=== PATIENT | female | born 1985 | race American Indian/Alaskan Native ===

== ENCOUNTER 2020-05-27 14:04 | Emergency (ER) | payer MEDICAID ==
[2020-05-27 15:47] LABS: Basophils # (Auto) 0.1 K/mm3 (0.0-0.1); Basophils % (Auto) 0.9 % (0.0-1.8); Eosinophils % (Auto) 0.5 % (0.0-4.3); Hematocrit 31.3 % (30.3-42.9); Hemoglobin 9.7 gm/dl (10.1-14.3); Lymphocytes % (Auto) 34.8 % (13.4-35.0); Mean Corpuscular HGB Conc 31 % (30-34); Mean Corpuscular Volume 71 fl (79-97); Monocytes # (Auto) 0.5 K/mm3 (0.0-0.8); Platelet Count 320 K/mm3 (140-440); Red Blood Count 4.42 M/mm3 (3.65-5.03); Red Cell Distribution Width 19.1 % (13.2-15.2)
--- NOTE | 2020-05-27 16:06 | Event Note ---
ED Screening Note ED Screening Note: vaginal bleeding began today no heavy bleeding one small blood clot 6 weeks states she goes to [facility] no abd pain no fever no v/d no dysuria no pMHx no allergies to meds LNMP: 04/14/2020 /P:5/A:1 had a miscarriage on March 18 This initial assessment/diagnostic orders/clinical plan/treatment(s) is/are subject to change based on patients health status, clinical progression and re- assessment by fellow clinical providers in the ED. Further treatment and workup at subsequent clinical providers discretion. Patient/guardian urged not to elope from the ED as their condition may be serious if not clinically assessed and managed. Initial orders include: labs, UA, US
[2020-05-27 16:50] LABS: BUN/Creatinine Ratio 10; Blood Urea Nitrogen 6 mg/dL (7-17); Calcium 9.2 mg/dL (8.4-10.2); Hemolysis Index 4
--- NOTE | 2020-05-27 18:03 | Ultrasound Report ---
ULTRASOUND OBSTETRIC INDICATION / CLINICAL INFORMATION: , vaginal bleeding. TECHNIQUE: Transabdominal and Transvaginal. COMPARISON: None available. FINDINGS: GESTATIONAL SAC: Well-defined oval shape and intrauterine in location. Small 1.2 x 0.6 x 0.6 cm subch orionic hemorrhage/implantation bleed. YOLK SAC: No significant abnormality. EMBRYO/FETUS: Not visualized. - Heart Rate, beats per minute (if present) = not yet visualized ADNEXA: Both ovaries within normal limits FREE FLUID: None. ADDITIONAL FINDINGS: None. IMPRESSION: 1. Early IUP with gestational sac and yolk sac noted with small implantation bleed. Recommend short-t erm follow-up ultrasound to confirm viability since embryo and heartbeat not visualized on reina y's study. Signer Name: Vivek Green MD Signed: 05/27/2020 5:59 PM Workstation Name: [id number]
--- NOTE | 2020-05-27 19:13 | Emergency Department Report ---
ED HPI - General Chief complaint: Vaginal Bleeding Stated complaint: 6 WEEKS VAGINAL BLEEDING Time Seen by Provider: 05/27/20 16:04 Source: patient Mode of arrival: Ambulatory Limitations: No Limitations - History of Present Illness Initial comments: pt is a 34 yo female who presents to the ED with c/o vaginal bleeding began today no heavy bleeding one small blood clot 6 weeks states she goes to [facility] for [facility] care no abd pain no fever no v/d no dysuria no pMHx no allergies to meds LNMP: 04/14/2020 /P:5/A:1 had a miscarriage on March 18 - Related Data Allergies Allergy/AdvReac Type Severity Reaction Status Date / Time No Known Allergies Allergy Unverified 05/27/20 14:56 ED Review of Systems ROS: Stated complaint: 6 WEEKS VAGINAL BLEEDING Other details as noted in HPI ED Past Medical Hx - Past Medical History Previous Medical History?: No - Surgical History Past Surgical History?: No ED Physical Exam - General Limitations: No Limitations ED Course Vital Signs 05/27/20 05/27/20 05/27/20 14:58 19:30 20:26 Temperature 98.2 F 98.5 F Pulse Rate 74 82 Respiratory 14 18 18 Rate Blood Pressure 132/75 Blood Pressure 129/75 [Left] O2 Sat by Pulse 100 100 100 Oximetry ED Medical Decision Making - Lab Data Result diagrams: 05/27/20 15:30 05/27/20 16:12 Lab Results 05/27/20 05/27/20 05/27/20 Range/Units 15:30 15:30 15:30 WBC 5.7 (4.5-11.0) K/mm3 RBC 4.42 (3.65-5.03) M/mm3 Hgb 9.7 L (10.1-14.3) gm/dl Hct 31.3 (30.3-42.9) % MCV 71 L (79-97) fl MCH 22 L (28-32) pg MCHC 31 (30-34) % RDW 19.1 H (13.2-15.2) % Plt Count 320 (140-440) K/mm3 Lymph % (Auto) 34.8 (13.4-35.0) % [place] % (Auto) 9.0 H (0.0-7.3) % Eos % (Auto) 0.5 (0.0-4.3) % Baso % (Auto) 0.9 (0.0-1.8) % Lymph # (Auto) 2.0 (1.2-5.4) K/mm3 [place] # (Auto) 0.5 (0.0-0.8) K/mm3 Eos # (Auto) 0.0 (0.0-0.4) K/mm3 Baso # (Auto) 0.1 (0.0-0.1) K/mm3 Seg Neutrophils % 54.8 (40.0-70.0) % Seg Neutrophils # 3.1 (1.8-7.7) K/mm3 Sodium (137-145) mmol/L Potassium (3.6-5.0) mmol/L Chloride (98-107) mmol/L Carbon Dioxide (22-30) mmol/L Anion Gap mmol/L BUN (7-17) mg/dL Creatinine (0.6-1.2) mg/dL Estimated GFR ml/min BUN/Creatinine Ratio % Glucose (65-100) mg/dL Calcium (8.4-10.2) mg/dL HCG, Qual Positive (Negative) HCG, Quant (0-4) mIU/mL Urine Color (Yellow) Urine Turbidity (Clear) Urine pH (5.0-7.0) Ur Specific [place] (1.003-1.030) Urine Protein (Negative) mg/dL Urine Glucose (UA) (Negative) mg/dL Urine Ketones (Negative) mg/dL Urine Blood (Negative) Urine Nitrite (Negative) Urine Bilirubin (Negative) Urine Urobilinogen (<2.0) mg/dL Ur Leukocyte Esterase (Negative) Urine WBC (Auto) (0.0-6.0) /HPF Urine RBC (Auto) (0.0-6.0) /HPF U Epithel Cells (Auto) (0-13.0) /HPF Urine Mucus /HPF Blood Type A POSITIVE 05/27/20 05/27/20 05/27/20 Range/Units 16:12 16:12 19:16 WBC (4.5-11.0) K/mm3 RBC (3.65-5.03) M/mm3 Hgb (10.1-14.3) gm/dl Hct (30.3-42.9) % MCV (79-97) fl MCH (28-32) pg MCHC (30-34) % RDW (13.2-15.2) % Plt Count (140-440) K/mm3 Lymph % (Auto) (13.4-35.0) % [place] % (Auto) (0.0-7.3) % Eos % (Auto) (0.0-4.3) % Baso % (Auto) (0.0-1.8) % Lymph # (Auto) (1.2-5.4) K/mm3 [place] # (Auto) (0.0-0.8) K/mm3 Eos # (Auto) (0.0-0.4) K/mm3 Baso # (Auto) (0.0-0.1) K/mm3 Seg Neutrophils % (40.0-70.0) % Seg Neutrophils # (1.8-7.7) K/mm3 Sodium 135 L (137-145) mmol/L Potassium 3.7 (3.6-5.0) mmol/L Chloride 101.1 (98-107) mmol/L Carbon Dioxide 26 (22-30) mmol/L Anion Gap 12 mmol/L BUN 6 L (7-17) mg/dL Creatinine 0.6 (0.6-1.2) mg/dL Estimated GFR > 60 ml/min BUN/Creatinine Ratio 10 % Glucose 95 (65-100) mg/dL Calcium 9.2 (8.4-10.2) mg/dL HCG, Qual (Negative) HCG, Quant 9507 H (0-4) mIU/mL Urine Color Yellow (Yellow) Urine Turbidity Hazy (Clear) Urine pH 6.0 (5.0-7.0) Ur Specific [place] 1.008 (1.003-1.030) Urine Protein <15 mg/dl (Negative) mg/dL Urine Glucose (UA) Neg (Negative) mg/dL Urine Ketones Neg (Negative) mg/dL Urine Blood Lg (Negative) Urine Nitrite Neg (Negative) Urine Bilirubin Neg (Negative) Urine Urobilinogen < 2.0 (<2.0) mg/dL Ur Leukocyte Esterase Neg (Negative) Urine WBC (Auto) 1.0 (0.0-6.0) /HPF Urine RBC (Auto) 1.0 (0.0-6.0) /HPF U Epithel Cells (Auto) 12.0 (0-13.0) /HPF Urine Mucus Few /HPF Blood Type - Radiology Data Radiology results: report reviewed Ordering Physician: EMMA JOHNSTON Date of Service: 05/27/20 Procedure(s): US OB transvaginal Accession Number(s): [id number] cc: EMMA JOHNSTON ULTRASOUND OBSTETRIC INDICATION / CLINICAL INFORMATION: , vaginal bleeding. TECHNIQUE: Transabdominal and Transvaginal. COMPARISON: None available. FINDINGS: GESTATIONAL SAC: Well-defined oval shape and intrauterine in location. Small 1.2 x 0.6 x 0.6 cm subchorionic hemorrhage/implantation bleed. YOLK SAC: No significant abnormality. EMBRYO/FETUS: Not visualized. - Heart Rate, beats per minute (if present) = not yet visualized ADNEXA: Both ovaries within normal limits FREE FLUID: None. ADDITIONAL FINDINGS: None. IMPRESSION: 1. Early IUP with gestational sac and yolk sac noted with small implantation bleed. Recommend short-term follow-up ultrasound to confirm viability since embryo and heartbeat not visualized on today's study. Signer Name: Vivek Green MD Signed: 05/27/2020 5:59 PM Workstation Name: [id number] Transcribed By: TL Dictated By: Vivek Green MD Electronically Authenticated By: Vivek Green MD Signed Date/Time: 05/27/201758 DD/ 55 TD/TT: - Medical Decision Making pt is a 34 yo female who presents to the ED with c/o vaginal bleeding began today no heavy bleeding one small blood clot 6 weeks states she goes to [facility] for [facility] care no abd pain no fever no v/d no dysuria no pMHx no allergies to meds LNMP: 04/14/2020 /P:5/A:1 had a miscarriage on March 18 vss. No abdominal tenderness on exam, no guarding, rebound, rigidity, normal bowel sounds, no peritoneal signs. Labs are stable. hCG quant is 9507. Patient is Rh+. UA is with small amount of blood otherwise normal. OB US: 1. Early IUP with gestational sac and yolk sac noted with small implantation bleed. Recommend short-term follow-up ultrasound to confirm viability since embryo and heartbeat not visualized on today's study. Discussed all results with patient and answered questions. Discussed threatened miscarriage and subchorionic hemorrhage. Discussed the importance of close [facility] follow-up with patient. Advised patient May take Tylenol as needed for discomfort. Increase your water intake. Please take vitamin [id number]. Follow-up with [facility]. You need to have a repeat hCG quant in 2 days. Today 05/27/2020 your hCG quant is 9507. Return to emergency room for new or worsening symptoms. Critical care attestation.: If time is entered above; I have spent that time in minutes in the direct care of this critically ill patient, excluding procedure time. ED Disposition Clinical Impression: Threatened miscarriage Subchorionic hemorrhage Qualifiers: Fetus number: single or unspecified fetus Trimester: first trimester Qualified Code(s): O41.8X10 - Other specified disorders of amniotic fluid and membranes, first trimester, not applicable or unspecified Disposition: DC-01 TO HOME OR SELFCARE Is pt being admited?: No Does the pt Need Aspirin: No Condition: Stable Instructions: Threatened Miscarriage, Subchorionic Hematoma Additional Instructions: May take Tylenol as needed for discomfort. Increase your water intake. Please take vitamin [id number]. Follow-up with [facility]. You need to have a repeat hCG quant in 2 days. Today 05/27/2020 your hCG quant is 9507. Return to emergency room for new or worsening symptoms. 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
[2020-05-27 19:47] LABS: Bilirubin,Urine NEG (Negative); Blood,Urine LG (Negative); Color,Urine Yellow (Yellow); Mucus,Urine FEW /HPF; Protein,Urine <15 mg/dL mg/dL (Negative); Urobilinogen,Urine < 2.0 mg/dL (<2.0)
[2020-05-27 20:29] VITALS: BP 129/75
== END 2020-05-27 20:26 | disposition home or self-care (01) ==
LOC: ED 14:04
DX: O41.8X10 Other specified disorders of amniotic fluid and membranes, first trimester, not applicable or unspecified (principal); O20.0 Threatened abortion; Z79.899 Other long term (current) drug therapy; Z3A.01 Less than 8 weeks gestation of pregnancy; X58.XXXA Exposure to other specified factors, initial encounter; Y93.89 Activity, other specified; Y92.89 Other specified places as the place of occurrence of the external cause; Y99.8 Other external cause status
CPT/HCPCS: 36415; 76801; 76817; 80048; 81001; 84702; 84703; 85025; 86900; 86901; 99283

== ENCOUNTER 2020-05-30 08:55 | Emergency (ER) | payer MEDICAID ==
[2020-05-30 09:27] VITALS: BP 138/78
--- NOTE | 2020-05-30 11:23 | Emergency Department Report ---
ED General Adult HPI - General Chief complaint: Recheck/Abnormal Lab/Rx Stated complaint: HCG LEVELS Time Seen by Provider: 05/30/20 10:52 Source: patient Mode of arrival: Ambulatory Limitations: No Limitations - History of Present Illness Initial comments: 34-year-old -[place] female patient presents for a repeat beta-hCG and ultrasound today patient was seen here in the ED 05/27/2020 for vaginal bleeding during . She was noted to have an IUP with a small implantation bleed on her ultrasound. Beta-hCG level was 9500 at that time. She denies any current vaginal bleeding or pain or urinary symptoms. Patient states she is feeling well. - Related Data Allergies Allergy/AdvReac Type Severity Reaction Status Date / Time No Known Allergies Allergy Unverified 05/27/20 14:56 ED Review of Systems ROS: Stated complaint: HCG LEVELS Other details as noted in HPI Constitutional: denies: chills, fever, malaise Respiratory: denies: shortness of breath Gastrointestinal: denies: abdominal pain Genitourinary: denies: urgency, dysuria, frequency, hematuria, abnormal menses ED Past Medical Hx - Past Medical History Previous Medical History?: No - Surgical History Past Surgical History?: No ED Physical Exam - General Limitations: No Limitations General appearance: alert, in no apparent distress - Head Head exam: Present: atraumatic, normocephalic - Eye Eye exam: Absent: scleral icterus - Respiratory Respiratory exam: Absent: respiratory distress - Cardiovascular Cardiovascular Exam: Present: regular rate - GI/Abdominal GI/Abdominal exam: Present: soft. Absent: distended, tenderness ED Course Vital Signs 05/30/20 09:27 Temperature 98.4 F Pulse Rate 62 Respiratory 18 Rate Blood Pressure 138/78 [Right] O2 Sat by Pulse 100 Oximetry ED Medical Decision Making - Radiology Data Radiology results: report reviewed ULTRASOUND OBSTETRIC INDICATION / CLINICAL INFORMATION: f/u on abnormal US. TECHNIQUE: Transabdominal. COMPARISON: 05/27/2020 FINDINGS: No significant interval change as compared to previous exam GESTATIONAL SAC: Well-defined oval shape and intrauterine in location. Gestational sac measures 16 mm-6 weeks 3 days YOLK SAC: Present ADNEXA: No significant abnormality. FREE FLUID: None. ADDITIONAL FINDINGS: None. IMPRESSION: 1.. Gestational sac consistent with early intrauterine no evidence of pole or heart motion. Recommend continued surveillance - Medical Decision Making 34-year-old -[place] female patient presents for a repeat beta-hCG and ultrasound today patient was seen here in the ED 05/27/2020 for vaginal bleeding during . She was noted to have an IUP with a small implantation bleed on her ultrasound. Beta-hCG level was 9500 at that time. She denies any current vaginal bleeding or pain or urinary symptoms. Patient states she is feeling well. Ultrasound shows IUP at 6 weeks 3 days, however no pole or heartbeat is noted at this time. Beta-hCG level today 17,000. appears viable. Patient to follow-up with [facility] in 1 week. Her vitals are normal, she is well- appearing and she is stable for discharge home. Discussed signs and symptoms that should prompt immediate return to the emergency department in detail with patient who verbalizes understanding. Critical care attestation.: If time is entered above; I have spent that time in minutes in the direct care of this critically ill patient, excluding procedure time. ED Disposition Clinical Impression: 6 weeks gestation of Disposition: DC-01 TO HOME OR SELFCARE Is pt being admited?: No Condition: Stable Instructions: First Trimester of Referrals: [facility] [Provider Group] - 3-5 Days
--- NOTE | 2020-05-30 13:09 | Ultrasound Report ---
ULTRASOUND OBSTETRIC INDICATION / CLINICAL INFORMATION: f/u on abnormal US. TECHNIQUE: Transabdominal. COMPARISON: 05/27/2020 FINDINGS: No significant interval change as compared to previous exam GESTATIONAL SAC: Well-defined oval shape and intrauterine in location. Gestational sac measures 16 mm -6 weeks 3 days YOLK SAC: Present ADNEXA: No significant abnormality. FREE FLUID: None. ADDITIONAL FINDINGS: None. IMPRESSION: 1.. Gestational sac consistent with early intrauterine no evidence of pole or heart m otion. Recommend continued surveillance Signer Name: Benito Edward MD Signed: 05/30/2020 1:05 PM Workstation Name: [id number]
--- NOTE | 2020-05-30 13:10 | Ultrasound Report ---
ULTRASOUND OBSTETRIC INDICATION / CLINICAL INFORMATION: f/u on abnormal US. TECHNIQUE: Transabdominal. COMPARISON: 05/27/2020 FINDINGS: FINDINGS: No significant interval change as compared to previous exam GESTATIONAL SAC: Well-defined oval shape and intrauterine in location. Gestational sac measures 16 mm -6 weeks 3 days YOLK SAC: Present ADNEXA: No significant abnormality. FREE FLUID: None. ADDITIONAL FINDINGS: None. IMPRESSION: 1.. Gestational sac consistent with early intrauterine no evidence of pole or heart m otion. Recommend continued surveillance Signer Name: Benito Edward MD Signed: 05/30/2020 1:05 PM Workstation Name: [id number]
== END 2020-05-30 14:00 | disposition home or self-care (01) ==
LOC: ED 08:55
DX: O20.9 Hemorrhage in early pregnancy, unspecified (principal); Z3A.01 Less than 8 weeks gestation of pregnancy
CPT/HCPCS: 36415; 76801; 76817; 84702